=== PATIENT | male | born 2000 | race Caucasian/White ===

== ENCOUNTER 2025-07-02 15:11 | Outpatient (REF) | payer MEDICAID, SELFPAY ==
[2025-07-02 21:43] LABS: HCT 41.7 % (40.0-50.0); HGB 14.4 g/dL (13.5-17.5); MCH 31.0 pg (27.0-33.0); MCHC 34.5 % (32.0-36.0); MCV 90 fL (80-95); MPV 10.6 fL (8.0-11.0); Platelet Count 287 10^3/uL (130-400); RBC 4.64 10^6/uL (4.36-5.78); RDW 11.6 % (11.8-14.1); RDW-SD 37.9 fL; WBC 5.98 10^3/uL (4.4-10.8)
[2025-07-02 22:01] LABS: ALT 28 U/L (16-63); AST 19 U/L (15-37); Albumin 4.7 g/dL (3.4-5.0); Alkaline Phosphatase 99 U/L (46-116); Anion Gap 8.3 mmol/L (3-11); BUN 9 mg/dL (7-18); Bilirubin, Total 0.4 mg/dL (0.2-1.0); CO2 29.7 mmol/L (21.0-32.0); Calcium 9.8 mg/dL (8.5-10.1); Chloride 102 mmol/L (98-107); Cholesterol 157 mg/dL (<200); Glucose 85 mg/dL (74-106); HDL Cholesterol 47 mg/dL (>or=40); Potassium 4.0 mmol/L (3.5-5.1); Sodium 140 mmol/L (136-145); Total Protein 7.8 g/dL (6.4-8.2)
== END 2025-07-02 15:12 | disposition home or self-care (01) ==
LOC: NCHCN 15:11
DX: Z13.0 Encounter for screening for diseases of the blood and blood-forming organs and certain disorders involving the immune mechanism (principal); F41.1 Generalized anxiety disorder; Z13.220 Encounter for screening for lipoid disorders
CPT/HCPCS: 80053; 80061; 85027

== ENCOUNTER 2025-07-30 16:03 | Outpatient (REF) | payer MEDICAID, SELFPAY ==
[2025-07-30 21:47] LABS: Vitamin D 25 Total 49 ng/mL (30-100)
== END 2025-07-30 16:04 | disposition home or self-care (01) ==
LOC: NCHCN 16:03
DX: E55.9 Vitamin D deficiency, unspecified (principal)
CPT/HCPCS: 82306